=== PATIENT | male | born 1965 | race Caucasian/White ===

== ENCOUNTER 2018-05-10 22:40 | Emergency (ER) | payer OTHER, MEDICAID, SELFPAY ==
[2018-05-10 23:10] VITALS: BP 112/68; PULSE 109; RESP 20; TEMP 36.5; O2SAT 99; BMI 22.9
[2018-05-10] MEDS: SODIUM CHLORIDE 0.9% 1,000 ML 200 ML IV (23:21)
[2018-05-10] MEDS: CEFTRIAXONE 1 GM/50 ML FROZ.PIGGY IV (23:30)
[2018-05-10 23:34] LABS: Add Manual Diff / Slide Review NO; Basophils Absolute Auto 200 /uL (0-100); Basophils Percent Auto 3.7 % (0-2); Eosinophils Absolute Auto 0 /uL (0-450); Hematocrit 33.4 % (41-53); Hemoglobin 11.4 g/dL (13.5-17.5); Lymphocytes Absolute Auto 1000 /uL (1100-4500); Lymphocytes Percent Auto 20.8 % (25-40); Mean Corpuscular HGB Conc 34.1 % (30-36); Mean Corpuscular Hemoglobin 32.9 PG (26-34); Mean Corpuscular Volume 96.4 fL (80-100); Monocytes Absolute Auto 400 /uL (0-900); Monocytes Percent Auto 8.1 % (3-14); Neutrophils Absolute Auto 3300 /uL (1500-7000); Neutrophils Percent Auto 66.4 % (50-75); Platelet Count 234 X10^3/uL (150-400); Red Blood Cell Count 3.47 X10^6/uL (4.5-5.9); Red Cell Distribution Width 15.5 % (11.6-14.8)
[2018-05-10 23:42] LABS: Lactate (Lactic Acid) 1.2 mmol/L (0.7-2.1)
[2018-05-10 23:43] LABS: Alanine Aminotransferase 21 IU/L (21-72); Albumin 3.3 g/dL (3.5-5.0); Alkaline Phosphatase 90 U/L (38-126); Aspartate Aminotransferase 42 IU/L (17-59); Bilirubin Total < 0.1 mg/dL (0.2-1.3); Blood Urea Nitrogen 12 mg/dL (9-20); Calcium 8.6 mg/dL (8.4-10.2); Carbon Dioxide 24 mmol/L (22-32); Chloride 104 mmol/L (98-107); Estimated Glomerular Filt Rate > 60.0 mL/min (>60); Globulin 3.2 g/dL (1.7-4.1); Glucose 93 mg/dL (70-100); HEMOLYSIS < 15 (0-50); Potassium 4.2 mmol/L (3.4-5.1); Sodium 138 mmol/L (137-145); Total Protein 6.5 g/dL (6.3-8.2)
[2018-05-10] MEDS: KETOROLAC 60 MG/2 ML VIAL 15 MG IV (23:46)
[2018-05-10 23:59] LABS: Lipase 620 U/L (23-300)
[2018-05-11 00:02] VITALS: BP 103/57; PULSE 104; RESP 18; O2SAT 96
[2018-05-11 00:05] LABS: Ethanol (ETOH) 209 mg/dL
[2018-05-11 00:10] LABS: Procalcitonin < 0.05 ng/mL (<0.5)
[2018-05-11] MEDS: FUROSEMIDE 20 MG/2 ML VIAL IV (00:26)
--- NOTE | 2018-05-11 00:26 | ED_ITS ---
HPI - Skin/Abscess/Foreign y [facility] Chief complaint: Skin/Abscess/Foreign Body Stated complaint: legs are very red and swollen and hot Time Seen by Provider: 05/10/18 22:55 Source: patient and old records reviewed Mode of arrival: ambulatory Limitations: no limitations History of Present Illness HPI narrative: patient is a 53-year-old male who presents with bilateral lower extremity redness and swelling. He denies any fever. He has been ongoing for at least 8 days. He is actually seen evaluated at [facility] multiple times for the same. His I have reviewed records from there. 05/05/2018 the legs appeared more erythematous than normal. He was given Keflex in Lasix and prescriptions for both. His according to documentation he purposely left the prescriptions in the room at time of discharge. He returned to [facility] few times after that patient is not currently taking Lasix or antibiotics. he does feel like he has some numbness and tingling in his legs. He is homeless and drinks alcohol regularly. he has no other complaints. No abdominal pain chest pain heart palpitations shortness of breath or other symptoms. MD complaint: rash Onset (ago): day(s) (8) Location: LLE and RLE Related Data Previous Rx's Medication Instructions Recorded cephalexin [Keflex] 500 mg PO TID #21 cap 05/11/18 furosemide [Lasix] 20 mg PO DAILY #7 tab 05/11/18 Allergies Allergy/AdvReac Type Severity Reaction Status Date / Time No Known Allergies Allergy Unknown Uncoded 05/10/18 23:42 Review of Systems Review of Systems ROS Unobtainable: All systems reviewed & are unremarkable except as noted in HPI and below Constitutional Denies chills, Denies fever(s), Denies lethargy and Denies weakness Eyes Denies change in vision, Denies eye discharge, Denies irritation and Denies loss of vision Cardiovascular Denies chest pain, Denies irregular heart rhythm, Denies lightheadedness, Denies palpitations, Denies dyspnea, Denies dyspnea on exertion and Denies orthopnea Respiratory Denies cough, Denies dyspnea, Denies dyspnea on exertion and Denies wheezing Gastrointestinal Gastrointestinal: Denies abdominal pain, Denies change in bowel habits, Denies diarrhea, Denies nausea and Denies vomiting Genitourinary Denies hematuria, Denies flank pain, Denies urinary incontinence and Denies urinary urgency Musculoskeletal Comments: swelling bilateral lower extremity Integumentary/Breasts Reports erythema and Reports skin swelling ( leg) Neurologic Denies loss of vision and Denies weakness Endocrine Denies palpitations Comments: homeless, alcohol abuse Allergic/Immunologic Denies wheezing PFSH Medical History Anxiety (Acute) Depression (Acute) Peripheral neuropathy (Acute) Social History Smoking Status: Current every day smoker alcohol intake: current Exam Initial Vital Signs Initial Vital Signs: Vital Signs Temperature 97.7 F 05/10/18 23:10 Pulse Rate 109 H 05/10/18 23:10 Respiratory Rate 05/10/18 23:10 Blood Pressure 112/68 05/10/18 23:10 Pulse Oximetry 99 05/10/18 23:10 GENERAL: appears older than stated age alert and oriented x3 cooperative HEENT: Head atraumatic,EOMI, neck is supple no meningeal signs CARDIOVASCULAR: Regular rate and rhythm without murmurs, rubs or gallops. RESPIRATORY: Breath sounds equal bilaterally, no wheezes rales or rhonchi. ABDOMEN: Soft, distended, nontender no guarding no rebound EXTREMITIES: Normal range of motion, no clubbing or edema. Neurovascularly intact bilateral pitting edema +3 NEUROLOGICAL: Alert and oriented x4 the all extremities no gross deficits SKIN: erythema bilateral legs below the knees it stops about mid leg. He has chronic calluses on the bottoms of both feet. lower extremities are weeping but no obvious wounds. Course Orders Ordered: ED Orders 05/10/18 23:15 Complete Blood Count AUTO DIFF Stat Comprehensive Metabolic Panel Stat Ethanol (ETOH) Stat Lactate (Lactic Acid) Stat Lipase Stat Procalcitonin Stat 05/10/18 23:28 Blood Culture Stat Discontinued Medications Furosemide (Lasix) 20 mg IV NOW ONE Stop: 05/11/18 00:18 Last Admin: 05/11/18 00:26 Dose: 20 mg Sodium Chloride (Normal Saline 0.9%) 1,000 mls @ 200 mls/hr IV CONT BARBARA Last Infusion: 05/10/18 23:52 Dose: 0 mls/hr Admin: 05/10/18 23:21 Dose: 200 mls/hr Ceftriaxone Sodium/Dextrose (Rocephin) 1 gm in 50 mls @ 100 mls/hr IV NOW ONE Stop: 05/10/18 23:45 Last Infusion: 05/10/18 23:52 Dose: 0 mls/hr Admin: 05/10/18 23:30 Dose: 100 mls/hr Ketorolac Tromethamine (Toradol) 15 mg IV NOW ONE Stop: 05/10/18 23:41 Last Admin: 05/10/18 23:46 Dose: 15 mg Vital Signs - 8 hr 05/10/18 23:10 05/11/18 00:02 05/11/18 00:41 Temperature 97.7 F 98.0 F Pulse Rate 109 H 104 H 94 H Respiratory Rate 20 18 18 Blood Pressure 112/68 Blood Pressure [Left Arm] 103/57 L 90/52 L Pulse Oximetry 99 96 97 MDM - Skin/Abscess/Foreign Bdy Lab Data Attestation: I reviewed the patient's lab results. Result diagrams: 05/10/18 23:15 05/10/18 23:15 Lab Results 05/10/18 05/10/18 05/10/18 Range/Units 23:15 23:15 23:15 WBC 5.0 (4.5-11.0) X10^3/uL RBC 3.47 L (4.5-5.9) X10^6/uL Hgb 11.4 L (13.5-17.5) g/dL Hct 33.4 L (41-53) % MCV 96.4 (80-100) fL MCH 32.9 (26-34) PG MCHC 34.1 (30-36) % RDW 15.5 H (11.6-14.8) % Plt Count 234 (150-400) X10^3/uL Neut % (Auto) 66.4 (50-75) % Lymph % (Auto) 20.8 L (25-40) % [place] % (Auto) 8.1 (3-14) % Eos % (Auto) 1.0 L (2-4) % Baso % (Auto) 3.7 H (0-2) % Neut # (Auto) 3300 (3497-4821) /uL Lymph # (Auto) 1000 L (8446-1581) /uL [place] # (Auto) 400 (0-900) /uL Eos # (Auto) 0 (0-450) /uL Baso # (Auto) 200 H (0-100) /uL Sodium 138 (137-145) mmol/L Potassium 4.2 (3.4-5.1) mmol/L Chloride 104 (98-107) mmol/L Carbon Dioxide 24 (22-32) mmol/L BUN 12 (9-20) mg/dL Creatinine 0.60 L (0.66-1.25) mg/dL Estimated GFR > 60.0 (>60) mL/min BUN/Creatinine Ratio 20.0 (6-22) Glucose 93 (70-100) mg/dL Lactate (0.7-2.1) mmol/L Calcium 8.6 (8.4-10.2) mg/dL Total Bilirubin < 0.1 L (0.2-1.3) mg/dL AST 42 (17-59) IU/L ALT 21 (21-72) IU/L Alkaline Phosphatase 90 (38-126) U/L Total Protein 6.5 (6.3-8.2) g/dL Albumin 3.3 L (3.5-5.0) g/dL Globulin 3.2 (1.7-4.1) g/dL Albumin/Globulin Ratio 1.0 (1.0-2.8) Lipase (23-300) U/L Procalcitonin < 0.05 (<0.5) ng/mL Ethyl Alcohol mg/dL 05/10/18 05/10/18 05/10/18 Range/Units 23:15 23:15 23:15 WBC (4.5-11.0) X10^3/uL RBC (4.5-5.9) X10^6/uL Hgb (13.5-17.5) g/dL Hct (41-53) % MCV (80-100) fL MCH (26-34) PG MCHC (30-36) % RDW (11.6-14.8) % Plt Count (150-400) X10^3/uL Neut % (Auto) (50-75) % Lymph % (Auto) (25-40) % [place] % (Auto) (3-14) % Eos % (Auto) (2-4) % Baso % (Auto) (0-2) % Neut # (Auto) (5518-2228) /uL Lymph # (Auto) (0425-6717) /uL [place] # (Auto) (0-900) /uL Eos # (Auto) (0-450) /uL Baso # (Auto) (0-100) /uL Sodium (137-145) mmol/L Potassium (3.4-5.1) mmol/L Chloride (98-107) mmol/L Carbon Dioxide (22-32) mmol/L BUN (9-20) mg/dL Creatinine (0.66-1.25) mg/dL Estimated GFR (>60) mL/min BUN/Creatinine Ratio (6-22) Glucose (70-100) mg/dL Lactate 1.2 (0.7-2.1) mmol/L Calcium (8.4-10.2) mg/dL Total Bilirubin (0.2-1.3) mg/dL AST (17-59) IU/L ALT (21-72) IU/L Alkaline Phosphatase (38-126) U/L Total Protein (6.3-8.2) g/dL Albumin (3.5-5.0) g/dL Globulin (1.7-4.1) g/dL Albumin/Globulin Ratio (1.0-2.8) Lipase 620 H (23-300) U/L Procalcitonin (<0.5) ng/mL Ethyl Alcohol 209 mg/dL Urine Dip Bedside Urine Glucose Negative Bedside Urine Bilirubin - Negative Bedside Urine Ketone - Negative Urine Specific [place] 1.015 Bedside Urine Occult Blood - Negative Bedside Urine pH 6.0 Bedside Urine Protein - Negative Bedside Urine Urobilinogen - Negative Bedside Urine Nitrite - Negative Bedside Urine Leukocytes - Negative Esterase MDM Narrative Medical decision making narrative: have reviewed records from [facility]. At this time is leg book and sound like they did previously. It does not appear that patient took her pills is medication of Lasix and Keflex. He does not appear septic at this time. He is given 1 dose of Rocephin in the ED. he is afebrile no leukocytosis normal all lactic acid. I discussed with patient and his patient advocate need for compression socks need to fill prescriptions of Lasix and antibiotics. He is homeless but does appear to have some support. Discharge Plan Departure Patient Disposition: Home Clinical Impression: Edema, peripheral Discharge Date/Time: 05/11/18 01:05 Interventions: ED Discharge Assessment Last Done: 05/11/18 01:22 Instructions: DI for Edema Due to Venous Stasis Activity Restrictions/Additional Instructions: *You have been diagnosed with peripheral edema, cellulitis *What to do: or compression socks, elevate legs, *Continue to take medications as directed: [facility] - Lasix 20 mg once a day for the next 7 days - Keflex 500 mg 3 times a day for 7 days *Follow up with your primary care provider in 2-3 days *Return to ER if you should have, fever, increased redness above knees, shortness of or any new, worsening or concerning symptoms Prescriptions: New cephalexin [Keflex] 500 mg capsule 500 mg PO TID Qty: 21 RF: 0 furosemide [Lasix] 20 mg tablet 20 mg PO DAILY Qty: 7 RF: 0
[2018-05-11 00:41] VITALS: BP 90/52; PULSE 94; RESP 18; TEMP 36.7; O2SAT 97
== END 2018-05-11 01:05 | disposition home or self-care (01) ==
PROVIDERS: Emergency Provider Emergency Medicine
DX: R60.0 Localized edema (principal); Z91.14 Patient's other noncompliance with medication regimen; Z59.0 Homelessness
CPT/HCPCS: 36415; 36591; 80053; 80320; 81003; 83605; 83690; 84145; 85025; 87040; 96361; 96374; 96375; 99284; J1885; J1940

== ENCOUNTER 2018-06-16 00:13 | Emergency (ER) | payer OTHER, MEDICAID, SELFPAY ==
--- NOTE | 2018-06-16 00:19 | DI.CT.S_ITS ---
PROCEDURE: CT LUMBAR SPINE WO CON INDICATIONS: known back problems, fall with severe midline pain TECHNIQUE: Noncontrast 3 mm thick sections acquired from the T12 level to the sacrum. Sagittal and coronal reformats were constructed. For radiation dose reduction, the following was used: automated exposure control. COMPARISON: [facility], CR, XR LUMBAR SPINE 2 OR 3 VIEWS, 02/24/2017, 15:33. FINDINGS: Image quality: Excellent. Bones: There is trace retrolisthesis of L5 on S1. No acute vertebral body compression fractures. No suspicious lytic or blastic bony lesions. There is mild to moderate degenerative disc disease at L1-L2, L2-L3, L3-L4, L4-L5 and L5-S1. There are multiple large bridging osteophytes at T11-T12, T12-L1, L1-L2 and L2-L3. Central spinal caliber is of normal overall caliber. No pars defects. Soft tissues: No retroperitoneal masses or hematomas. Visualized aorta is normal in caliber. Note is made of aortic calcification. IMPRESSION: 1. No fractures. 2. Degenerative changes in lumbar spine. If clinical symptoms persist or clinical suspicion for pathology is high, MRI is suggested for further evaluation. No significant discrepancy with the slot shift manager radiology preliminary report. Dictated by: Power Matos M.D. on 06/16/2018 at 7:58 Approved by: Power Matos M.D. on 06/16/2018 at 8:03
[2018-06-16 00:35] VITALS: BP 142/81; PULSE 86; RESP 20; O2SAT 97
--- NOTE | 2018-06-16 01:55 | ED_ITS ---
HPI - Back Pain/Injury General Chief Complaint: Back Pain/Injury Stated Complaint: GLF Time Seen by Provider: 06/16/18 00:16 Source: patient and EMS Mode of arrival: EMS Limitations: no limitations History of Present Illness HPI Narrative: 53-year-old male smoker an extensive alcohol abuser presents to the emergency department by EMS for evaluation of ongoing back pain since a fall a few days ago. Patient is a heavy alcohol abuser and was confronted by the police this evening a and during their evaluation he started complaining of his back at which point EMS was activated and he was transported here. He has ongoing and chronic back pain but denies any neurologic findings such as numbness, tingling or weakness. He denies any fever, chills or vomiting. He denies any footdrop nor trouble with bowel or bladder control. MD Complaint: back pain and back injury Onset (ago): day(s) Duration: intermittent Similar Symptoms Previously: Yes Location: lumbar spine Severity: moderate Quality: aching Relieving factors: immobilization Exacerbating factors: movement Context: fall Associated symptoms: denies other symptoms Related Data Previous Rx's Medication Instructions Recorded cephalexin [Keflex] 500 mg PO TID #21 cap 05/11/18 furosemide [Lasix] 20 mg PO DAILY #7 tab 05/11/18 Allergies Allergy/AdvReac Type Severity Reaction Status Date / Time No Known Allergies Allergy Unknown Uncoded 05/10/18 23:42 Review of Systems Constitutional Denies chills, Denies fever(s), Denies lethargy and Denies weakness Eyes Denies change in vision, Denies eye discharge, Denies irritation and Denies loss of vision ENT Ears, Nose, Mouth, and Throat: Denies change in voice, Denies neck pain and Denies sore throat Cardiovascular Denies chest pain, Denies irregular heart rhythm, Denies lightheadedness, Denies palpitations, Denies dyspnea, Denies dyspnea on exertion and Denies orthopnea Respiratory Denies cough, Denies dyspnea, Denies dyspnea on exertion and Denies wheezing Gastrointestinal Gastrointestinal: Denies abdominal pain, Denies change in bowel habits, Denies diarrhea, Denies nausea and Denies vomiting Genitourinary Denies hematuria, Denies flank pain, Denies urinary incontinence and Denies urinary urgency Musculoskeletal Reports back pain and Denies neck pain Integumentary/Breasts Denies pruritus, Denies erythema, Denies rash and Denies wounds Neurologic Denies confusion, Denies loss of vision and Denies weakness Psychiatric Denies anxiety, Denies confusion, Denies depression, Denies homicidal ideation and Denies suicidal ideation Endocrine Denies palpitations Hematologic/Lymphatic Denies easy bruising Allergic/Immunologic Denies wheezing [facility] Medical History Anxiety (Acute) Depression (Acute) Peripheral neuropathy (Acute) Social History Smoking Status: Current every day smoker alcohol intake: current Social History Smoking Status: Current every day smoker alcohol intake: current Exam Narrative Exam Narrative: GENERAL: 53-year-old male is a bit disheveled and smells of urine. He is complaining of back pain but joking with medics HEAD: Atraumatic. Normocephalic. No temporal or scalp tenderness. EYES: Pupils equal round and reactive. Extraocular motions intact. No scleral icterus. No injection or drainage. ENT: Nose without bleeding, purulent drainage or septal hematoma. Throat without erythema, tonsillar hypertrophy or exudate. Uvula midline. Airway patent. NECK: Trachea midline. No JVD or lymphadenopathy. Supple, nontender, no meningeal signs. CARDIOVASCULAR: Regular rate and rhythm without murmurs, gallops, or rubs. RESPIRATORY: Clear to auscultation. Breath sounds equal bilaterally. No wheezes, rales, or rhonchi. GASTROINTESTINAL: Abdomen soft, non-tender, nondistended. No hepato- splenomegaly, or palpable masses. No guarding. EXTREMITIES: No clubbing, cyanosis, or edema. No joint tenderness, effusion, or edema noted. BACK: Nontender without deformity or crepitance. No flank tenderness. No midline tenderness, step-off, bruising or other NEURO: AOx3. SKIN: No rash or erythema. Initial Vital Signs Initial Vital Signs: Vital Signs Pulse Rate 86 06/16/18 00:35 Respiratory Rate 20 06/16/18 00:35 Blood Pressure 142/81 H 06/16/18 00:35 Pulse Oximetry 97 06/16/18 00:35 Course Orders Ordered: ED Orders 06/16/18 00:19 CT lumbar spine wo con Stat Discontinued Medications Ibuprofen (Advil) 800 mg PO NOW ONE Stop: 06/16/18 06:23 Last Admin: 06/16/18 06:25 Dose: 800 mg Reevaluation(s) Reevaluation #1: Patient has been sleeping much of the night. He wakes easily and answers questions appropriately. He speaks clearly and is walking at his baseline. He states his back is become quite sore from laying on our uncomfortable carts and wishes to go to the waiting room. We have offered to help him call a cab or place phone calls to any friends that may be able to help get him home but he states he would prefer to wait for now. He has capacity to make his decisions and does not want discharge paperwork, stating he knows what it says already. Time: 06:45 Vital Signs - 8 hr 06/16/18 00:35 06/16/18 06:23 Pulse Rate 86 90 Respiratory Rate 20 20 Blood Pressure [Left Wrist] 142/81 H 98/49 L Pulse Oximetry 97 95 MDM - Back Pain/Injury Imaging Data Lumbar CT: Radiologist's impression: No fracture Discharge Plan Departure Patient Disposition: Home Clinical Impression: Alcohol abuse Strain of lumbar region Qualifiers: Encounter type: initial encounter Qualified Code(s): S39.012A - Strain of muscle, fascia and tendon of lower back, initial encounter Activity Restrictions/Additional Instructions: *You have been diagnosed with [ alcohol abuse, lumbar back pain . A CT scan of your back showed no fracture] *What to do: *Take medications as directed: Tylenol or Motrin for aches and pains *Follow up with your primary care provider in 2-3 days, call for an appointment. Let them know you were seen in the Emergency Department and that we ask that you be seen in follow up *Return to ER if you should have any new, worsening or concerning symptoms Prescriptions: No Action cephalexin [Keflex] 500 mg capsule 500 mg PO TID Qty: 21 RF: 0 furosemide [Lasix] 20 mg tablet 20 mg PO DAILY Qty: 7 RF: 0 Referrals: [facility] [Outside]
[2018-06-16 06:23] VITALS: BP 98/49; PULSE 90; RESP 20; O2SAT 95
[2018-06-16] MEDS: IBUPROFEN 400 MG TABLET 800 MG PO (06:25)
== END 2018-06-16 06:45 | disposition home or self-care (01) ==
PROVIDERS: Emergency Provider Emergency Medicine
DX: S39.012A Strain of muscle, fascia and tendon of lower back, initial encounter (principal); F10.10 Alcohol abuse, uncomplicated; W19.XXXA Unspecified fall, initial encounter
CPT/HCPCS: 72131; 99283

== ENCOUNTER 2018-06-19 23:07 | Emergency (ER) | payer OTHER, MEDICAID, SELFPAY ==
[2018-06-19 23:21] VITALS: BP 113/71; PULSE 113; RESP 18; TEMP 36.4; O2SAT 100
--- NOTE | 2018-06-19 23:35 | PC.NURSE ---
Pt able to ambulate to the bathroom with a walker in stable gait to use bathroom.
--- NOTE | 2018-06-19 23:57 | ED.BACK ---
HPI - Back Pain/Injury General Chief Complaint: Back Pain/Injury Stated Complaint: back pain Time Seen by Provider: 06/19/18 23:09 Source: patient Mode of arrival: EMS Limitations: no limitations History of Present Illness HPI Narrative: Patient is a 53-year-old male who was seen here in this emergency department recently for back pain. He had a CT scan performed which showed no acute pathology. He returns today for continued back pain. He has not seen his primary doctor. He also has bilateral lower extremity redness. No new trauma. Related Data Previous Rx's Medication Instructions Recorded cephalexin [Keflex] 500 mg PO TID #21 cap 05/11/18 furosemide [Lasix] 20 mg PO DAILY #7 tab 05/11/18 cyclobenzaprine 10 mg PO TID PRN #12 tab 06/19/18 Allergies Allergy/AdvReac Type Severity Reaction Status Date / Time No Known Allergies Allergy Unknown Uncoded 06/19/18 23:24 Review of Systems Constitutional Denies fever(s) Cardiovascular Denies chest pain and Denies dyspnea Respiratory Denies dyspnea Musculoskeletal Reports back pain Integumentary/Breasts Comments: Bilateral lower extremity redness Neurologic Denies behavioral changes Psychiatric Denies behavioral changes [facility] Social History Smoking Status: Current every day smoker alcohol intake: current Exam Initial Vital Signs Initial Vital Signs: Vital Signs Temperature 97.6 F 06/19/18 23:21 Pulse Rate 113 H 06/19/18 23:21 Respiratory Rate 18 06/19/18 23:21 Blood Pressure 113/71 06/19/18 23:21 Pulse Oximetry 100 06/19/18 23:21 Const General: well groomed and No acute distress Orientation: alert and awake [facility] Head: normal to inspection and normocephalic Resp Effort & Inspection: normal respiratory effort Cardio Rate: tachycardic Back/Spine/Pelvis Back: No CVA tenderness Skin Other: Patient has bilateral redness with flaking to his lower extremities from his toes to knees. No blistering. Neuro General: alert and awake Speech: speech normal Motor: muscle tone normal throughout Extrem Other: 1+ pitting edema bilateral lower extremities Psych Appearance: grossly normal and well kempt Course Orders Ordered: Discontinued Medications Cyclobenzaprine HCl (Flexeril 10 Mg Prepack) 1 bottle MISC SEEINSTR ONE Stop: 06/19/18 23:57 Last Admin: 06/20/18 00:03 Dose: 1 bottle Vital Signs - 8 hr 06/19/18 23:21 Temperature 97.6 F Pulse Rate 113 H Respiratory Rate 18 Blood Pressure 113/71 Pulse Oximetry 100 MDM - Back Pain/Injury MDM Narrative Medical decision making narrative: Patient's bilateral lower extremity redness and swelling is not consistent with cellulitis and more consistent with a dermatitis versus peripheral vascular disease. No indication for antibiotics. Patient has been evaluated for his low back pain. He has no red flag symptoms concerning for any acute pathology. Informed him that he needed to continue the anti-inflammatories. He was informed that he needed to follow up with his primary doctor regarding his back pain and his lower extremity issues. He was given Flexeril because he states that that has helped his back pain in the past. Given return precautions. Discharge Plan Departure Patient Disposition: Home Clinical Impression: Dermatitis Back pain Qualifiers: Back pain location: low back pain Chronicity: chronic Back pain laterality: bilateral Sciatica presence: without sciatica Qualified Code(s): M54.5 - Low back pain Discharge Date/Time: 06/20/18 00:22 Interventions: ED Discharge Assessment Last Done: 06/20/18 00:23 Instructions: Managing Chronic Low Back Pain, Back Pain (Alternative Therapy), DI for Low Back Pain, Activity May Be Better then Rest for Low Back Pain Recovery Activity Restrictions/Additional Instructions: Continue the anti-inflammatories such as Motrin or Naprosyn for your back pain. This is something you need to follow up with your primary doctor about. You need to discuss the indications for physical therapy or potentially seeing a air quality specialist. The redness on her lower extremities also needs to be followed up by your primary doctor. Prescriptions: New cyclobenzaprine 10 mg tablet 10 mg PO TID PRN (Reason: muscle spasm) Qty: 12 RF: 0 No Action cephalexin [Keflex] 500 mg capsule 500 mg PO TID Qty: 21 RF: 0 furosemide [Lasix] 20 mg tablet 20 mg PO DAILY Qty: 7 RF: 0
[2018-06-20] MEDS: CYCLOBENZAPRINE 10 MG PREPACK 1 BOTTLE MISC (00:03)
== END 2018-06-20 00:22 | disposition home or self-care (01) ==
PROVIDERS: Emergency Provider Emergency Medicine
DX: L30.9 Dermatitis, unspecified (principal); M54.9 Dorsalgia, unspecified
CPT/HCPCS: 99282